=== PATIENT | female | born 1995 | race Caucasian/White ===

== ENCOUNTER 2016-04-04 09:52 | Emergency (ER) | payer MEDICAID ==
[~2016-04-04] VITALS: Wt 114.5 kg
--- NOTE | 2016-04-04 10:42 | RADRPT ---
PROCEDURE: XR Foot. CLINICAL INDICATION: TRAUMA TECHNIQUE: 3 views of the left foot were obtained. COMPARISON: None. FINDINGS: No fracture or dislocation is seen. No foreign body is seen. No marked soft tissue swelling. No s ignificant degenerative change. IMPRESSION: No definite acute fracture or dislocation. RPTAT: HLBE Erin Mahoney Physician Date Time Electronically viewed and signed by Erin Mahoney, Physician on 04/04/2016 10:41 LE/
--- NOTE | 2016-04-04 10:43 | RADRPT ---
PROCEDURE: XR left ankle CLINICAL INDICATION: TRAUMA TECHNIQUE: 3 views of the left ankle were performed. COMPARISON: None. FINDINGS: No definite fracture, dislocation, and/or effusion is seen. The ankle mortise is grossly intact. N o marked soft tissue edema. No definite abnormal calcification. IMPRESSION: No definite acute bony abnormality. RPTAT: HLBE Erin Mahoney Physician Date Time Electronically viewed and signed by Erin Mahoney Physician on 04/04/2016 10:43 LE/
[2016-04-04] MEDS ORDERED: IBUPROFEN 600 MG TAB PO ONE (11:00)
[2016-04-04] MEDS ORDERED: HYDROCODONE/APAP (5/325) TAB PO ONE (11:00)
[2016-04-04] MEDS ORDERED: IBUP-1542 PO (11:02)
--- NOTE | 2016-04-04 11:04 | ERA ---
ER Documentation Chief Complaint Date/Time DATE: 04/04/16 TIME: 11:03 Chief Complaint LEFT ANKLE INJURY HPI This 20-year-old female claims of left ankle pain after twisting it last night. She denies restricted range of motion weakness. She denies fevers or redness or bleeding. ROS All systems reviewed and are negative except as per history of present illness. Medications Home Meds Active Scripts Ibuprofen* (Motrin*) 600 Mg Tab, 600 MG PO Q6, #20 TAB Prov:JOSELYN PEDRO MD 04/04/16 Allergies Allergies: Coded Allergies: Cephalexin (Verified Allergy, Intermediate, throat swollen , Rash itching , 06/26/13) clindamycin (Verified Allergy, Intermediate, Rash Thor[place] swells, 06/26/13) PMhx/Soc History of Surgery: Yes (tonsillectomy, nasal polyps removed) Hx Alcohol Use: No Hx Substance Use: No Hx Tobacco Use: No Physical Exam Vitals Vital Signs Date Time Temp Pulse Resp B/P Pulse Ox O2 Delivery O2 Flow Rate FiO2 04/04/16 09:56 97.2 96 17 160/85 98 Physical Exam Const: [] Alert, [id number] per Head: Atraumatic Eyes: Normal Conjunctiva ENT: Normal External Ears, Nose and Mouth. Neck: Full range of motion..~ No meningismus. Resp: Clear to auscultation bilaterally Cardio: Regular rate and rhythm, no murmurs Abd: Soft, non tender, non distended. Normal bowel sounds Skin: No petechiae or rashes Back: No midline or flank tenderness Ext: No cyanosis, or edema. There is some tenderness in the left lateral ankle joint as well as the fifth metatarsal area. There is some mild swelling and bruising. There is no appreciable tendon or neurologic deficit. There is no warmth or erythema. Neur: Awake and alert Psych: Normal Mood and Affect Results 24 hrs Current Medications Medications (Trade) Dose Ordered Sig/Terrance Route PRN Reason Start Time Stop Time Status Last Admin Dose Admin Ibuprofen (Motrin) 600 mg ONCE ONCE PO 04/04/16 11:00 04/04/16 11:01 DC Acetaminophen/ Hydrocodone Bitart ([place] (5/325)) 1 tab ONCE ONCE PO 04/04/16 11:00 04/04/16 11:00 DC Procedures/MDM X-ray left ankle 3V Interpreted by me: Bones: [No fracture] Joints: No dislocation. Impression-normal left ankle x-ray X-ray left foot 3V Interpreted by me: Bones: [No fracture] Joints: [No dislocation] Foreign body: [None]. Impression-normal left foot x-ray Patient was placed in the left ankle stirrup splint Aircast. Patient was neurovascular intact after splint. Patient is also given crutch training. Patient appears to have a left ankle sprain without signs or symptoms to suggest fracture, dislocation, tendon or neurologic deficit, bacterial infection. She will treated with ibuprofen and instructions for ice and elevation instructions to follow-up with PCP, orthopedist for pain in the next week. She should return sooner for fevers, redness, new or worsening symptoms. Departure Diagnosis: Primary Impression: Ankle sprain Qualified Code: S93.401A - Sprain of right ankle, unspecified ligament, initial encounter Patient Instructions: Treating Ankle Sprains Additional Instructions: X-rays read as normal. See orthopedist or primary doctor for pain next week. Recommend ice and elevation at home. JOESLYN PEDRO MD Apr 04, 2016 11:04
== END 2016-04-04 11:13 | disposition home or self-care (01) ==
LOC: FTE 09:52
DX: S93.402A Sprain of unspecified ligament of left ankle, initial encounter (principal); X50.1XXA Overexertion from prolonged static or awkward postures, initial encounter; Y92.9 Unspecified place or not applicable
CPT/HCPCS: 73610; 73630; Z7610

== ENCOUNTER 2016-09-30 18:25 | Emergency (ER) | payer OTHER ==
[~2016-09-30] VITALS: Ht 157.5 cm; Wt 116.0 kg
[~2016-09-30 18:25] MED LIST: IBUP-1542 PO
[2016-09-30 18:40] VITALS: Ht 157.5 cm; Wt 116.0 kg
[2016-09-30] MEDS ORDERED: ONDANSETRON 4 MG INJ IV STA ×2 (19:02→20:53)
[2016-09-30] MEDS ORDERED: morphine 4 MG/ML VIAL IV STA (19:02)
--- NOTE | 2016-09-30 19:18 | ERD ---
ER Documentation Chief Complaint Date/Time DATE: 09/30/16 TIME: 19:17 Chief Complaint right flank pain x 2 days HPI 21-year-old female otherwise healthy comes in with right lower quadrant abdominal pain that started yesterday after leaving the gym. She states that it was gradual in onset, worsening, and nonradiating. It is associated with tactile fevers she has not had any fevers, chills patient reports nausea and vomiting, however no diarrhea or URI symptoms. ROS All systems reviewed and are negative except as per history of present illness. Medications Home Meds Active Scripts Ondansetron (Ondansetron Odt) 4 Mg Tab.rapdis, 4 MG PO Q6H Y for NAUSEA AND/OR VOMITING, #10 TAB Prov:MILI EDWARDS PA-C 09/30/16 Ibuprofen* (Motrin*) 600 Mg Tab, 600 MG PO Q6, #30 TAB Prov:MILI EDWARDS PA-C 09/30/16 Ibuprofen* (Motrin*) 600 Mg Tab, 600 MG PO Q6, #20 TAB Prov:JOSELYN PEDRO MD 04/04/16 Allergies Allergies: Coded Allergies: cephalexin (Verified Allergy, Intermediate, throat swollen , Rash itching , 09/30/16) clindamycin (Verified Allergy, Intermediate, Rash [place] swells, 09/30/16) PMhx/Soc History of Surgery: Yes (tonsillectomy, nasal polyps removed) Hx Alcohol Use: No Hx Substance Use: No Hx Tobacco Use: Yes Smoking Status: Current some day smoker Physical Exam Vitals Vital Signs Date Time Temp Pulse Resp B/P Pulse Ox O2 Delivery O2 Flow Rate FiO2 09/30/16 18:40 97.3 104 20 162/92 98 Physical Exam Const: Well-developed, well-nourished, in no acute distress. HEENT: Atraumatic. Normal Conjunctiva. Resp: Clear to auscultation bilaterally Cardio: Regular rate and rhythm, no murmurs Abd: Soft, n tender in right lower quadrant, with mild rebound non distended. Normal bowel sounds. No McBurney's point tenderness. No guarding or rigidity. No peritoneal signs. Skin: No petechia or rashes Back: No midline or flank tenderness Ext: No cyanosis, or edema Neur: Awake and alert, appropriate for age Result Diagram: 09/30/16192709/30/161927 Results 24 hrs Laboratory Tests Test 09/30/16 19:22 09/30/16 19:28 Urine Color YELLOW Urine Clarity SLIGHTLY CLOUDY Urine pH 5.0 Urine Specific [place] 1.019 Urine Ketones NEGATIVEmg/dL Urine Nitrite NEGATIVEmg/dL Urine Bilirubin NEGATIVEmg/dL Urine Urobilinogen NEGATIVEmg/dL Urine Leukocyte Esterase NEGATIVELeu/ul Urine Microscopic RBC 1/HPF Urine Microscopic WBC 1/HPF Urine Squamous Epithelial Cells FEW/HPF Urine Hemoglobin NEGATIVEmg/dL Urine Glucose NEGATIVEmg/dL Urine Total Protein NEGATIVEmg/dl White Blood Count 11.610^3/ul Red Blood Count 5.1710^6/ul Hemoglobin 14.1g/dl Hematocrit 42.3% Mean Corpuscular Volume 81.8fl Mean Corpuscular Hemoglobin 27.3pg Mean Corpuscular Hemoglobin Concent 33.3g/dl Red Cell Distribution Width 13.2% Platelet Count 66719^3/UL Mean Platelet Volume 10.0fl Neutrophils % 70.2% Lymphocytes % 24.2% Monocytes % 4.4% Eosinophils % 0.5% Basophils % 0.3% Nucleated Red Blood Cells % 0.0/100WBC Neutrophils # 8.110^3/ul Lymphocytes # 2.810^3/ul Monocytes # 0.510^3/ul Eosinophils # 0.110^3/ul Basophils # 0.010^3/ul Nucleated Red Blood Cells # 0.010^3/ul Sodium Level 140mmol/L Potassium Level 3.9mmol/L Chloride Level 104mmol/L Carbon Dioxide Level 23mmol/L Anion Gap 17 Blood Urea Nitrogen 9mg/dl Creatinine 0.83mg/dl Glucose Level 91mg/dl Calcium Level 9.4mg/dl Total Bilirubin 0.2mg/dl Direct Bilirubin 0.00mg/dl Indirect Bilirubin 0.2mg/dl Aspartate Amino Transf (AST/SGOT) 20IU/L Alanine Aminotransferase (ALT/SGPT) 33IU/L Alkaline Phosphatase 63IU/L Total Protein 7.5g/dl Albumin 4.8g/dl Globulin 2.70g/dl Albumin/Globulin Ratio 1.77 Lipase 39U/L Current Medications Medications (Trade) Dose Ordered Sig/Terrance Route PRN Reason Start Time Stop Time Status Last Admin Dose Admin Morphine Sulfate (morphine) 4 mg ONCE STAT IV 09/30/16 19:02 09/30/16 19:04 DC 09/30/16 19:30 Ondansetron HCl (Zofran Inj) 4 mg ONCE STAT IV 09/30/16 19:02 09/30/16 19:04 DC 09/30/16 19:29 Ketorolac Tromethamine (Toradol) 30 mg ONCE STAT IV 09/30/16 20:42 09/30/16 20:43 DC 09/30/16 20:59 Ondansetron HCl 4 mg 4 mg ONCE STAT IV 09/30/16 20:53 09/30/16 20:55 DC 09/30/16 20:59 Sodium Chloride (NS) 1,000 ml @ 1,000 mls/hr Q1H ONCE IV 09/30/16 21:00 09/30/16 21:59 09/30/16 21:01 Acetaminophen/ Hydrocodone Bitart ([place] (5/325)) 1 tab ONCE ONCE PO 09/30/16 22:00 09/30/16 22:01 09/30/16 21:42 DIAGNOSTIC IMAGING REPORT Patient: SANDRA CHAPIN : 1995 Age: 21 Sex: F MR #: [id number] DOS: 09/30/16 1902 Ordering MD: MILI EDWARDS PA-C Location: [facility] Room/Bed: PROCEDURE: CT scan of the abdomen and pelvis without IV contrast. CLINICAL INDICATION: 21-year-old female with right lower quadrant pain. TECHNIQUE: Thin section axial, coronal and sagittal images were performed through the abdomen and pelvis without contrast. Radiation Dose: CTDI: 23.7 and DLP: 1485 One or more of the following dose reduction techniques were used: - Automated exposure control. - Adjustment of the mA and/or kV according to patient size. Use of iterative reconstruction technique. COMPARISON: CT scan abdomen pelvis 10/09/2013. FINDINGS: Soft tissues: Generous.. Lungs and pleural spaces: Normal. Heart: Normal. No pericardial effusion is identified. The liver, common bile duct and gallbladder: Normal. Gastrointestinal: There is no evidence of a hiatal hernia. The stomach and small bowel loops are normal. There is a tiny midline umbilical hernia. There is fecal material in the ascending colon. The appendix is normal. Pancreas: The pancreas and extrahepatic common bile duct are normal. Kidneys, bladder and adrenal glands : The adrenal glands are normal. The kidneys are unremarkable. There is no evidence of hydronephrosis on today's exam. A phlebolith is noted in the lower left side of the pelvis. There is a small phlebolith slightly right of midline in the lower pelvis. No bladder stone or ureterolith is identified. Spleen: Normal. Lymph nodes: There are multiple small mesenteric nodes measuring under 6 mm in the left upper abdomen. There are small retroperitoneal lymph nodes. No pathologically enlarged lymph node is identified. Reproductive system and pelvis : Normal. The uterus is retroflexed. There is no evidence of an abnormal adnexal mass. Trace free fluid is noted in the pelvis. Bony elements: Normal. Vasculature: Normal. IMPRESSION: 1. No acute intra-abdominal process is identified. 2. Normal vermiform appendix. No evidence of diverticulosis or diverticulitis. 3. Trace fluid in the pelvis. 4. Retroflexed uterus. RPTAT:AAJJ Physician Carmen Date Time Electronically viewed and signed by Quoc Hood Physician on 09/30/2016 20:15 JM/ CC: MILI EDWARDS PA-C DIAGNOSTIC IMAGING REPORT Patient: SANDRA CHAPIN : 1995 Age: 21 Sex: F MR #: [id number] DOS: 09/30/162023 Ordering MD: MILI EDWARDS PA-C Location: [facility] Room/Bed: PROCEDURE: US Pelvis. CLINICAL INDICATION: 21-year-old female with right lower quadrant pain. TECHNIQUE: Multiple sonographic images of the pelvis were obtained utilizing a transabdominal and endovaginal technique. The images were reviewed on a PACS workstation. COMPARISON: None. FINDINGS: The uterus is retroflexed and measures 7.2 cm sagittal by 3.5 cm AP by 5 cm transverse. There is free fluid in the cul-de-sac.. The endometrial echo complex is normal and measures 0.77 cm.. There is no evidence for free fluid. The right ovary has a normal echotexture and measures 4.1 x 3 by 2 cm and contains several follicles. The largest measured 1.6 x 1.1 cm. . The left ovary has a normal echotexture and measures 1.3 by 2.4 by 5 cm. There is normal blood flow to both ovaries on Doppler imaging.. No adnexal masses are noted. IMPRESSION: 1. There is a small amount of free fluid in the cul-de-sac. 2. Normal ovaries with normal blood flow to both ovaries. 3. There are multiple follicles in both ovaries with a right ovarian dominant follicle or cyst measuring up to 1.6 cm. 4. No abnormal adnexal mass is identified. The vermiform appendix is not demonstrated. RPTAT:AAJJ Physician Carmen Date Time Electronically viewed and signed by Quoc Hood Physician on 09/30/2016 21:22 JM/ CC: MILI EDWARDS PA-C Procedures/MDM ED course: Patient an IV line established, patient was given morphine 4 mg, Zofran 4 mg IV , labs and urine were obtained. She states that she was still nauseous after receiving this previous Zofran, and the risk for was given additional pain medication including Toradol 30 mg IV with Zofran 4 mg IV and a fluid bolus of normal saline 1 L. She was given [place] 5/325 mg for pain as well. Medical decision making: This is a 21-year-old female comes emergency room right lower quadrant pain that started yesterday, differentials include acute appendicitis, diverticulitis, bowel obstruction, tubo-ovarian abscess, ovarian cyst, UTI, pyelonephritis, kidney stones, and among others. Pain may be due to viral process, she has associated nausea and vomiting, that cannot be seen on CT today. She had follicular cyst seen on the right side, without evidence of any acute or surgical abdominal process. She was resting comfortably after she was medicated emergency department in stable for discharge. Departure Diagnosis: Primary Impression: Abdominal pain Condition: MILI Luke PA-C Sep 30, 2016 19:18
[2016-09-30 19:42] LABS: ADD SCAN DIFF NO
[2016-09-30 19:43] LABS: BASOPHILS % 0.3 % (0.0-2.0); EOSINOPHILS # 0.1 10^3/ul (0.0-0.5); EOSINOPHILS % 0.5 % (0.0-7.0); HEMATOCRIT 42.3 % (37.0-47.0); HEMOGLOBIN 14.1 g/dl (12.0-16.0); LYMPHOCYTES # 2.8 10^3/ul (0.8-2.9); LYMPHOCYTES % 24.2 % (18.0-55.0); MEAN CORPUSCULAR HEMOGLOBIN 27.3 pg (29.0-33.0); MEAN CORPUSCULAR HGB CONC 33.3 g/dl (32.0-37.0); MEAN CORPUSCULAR VOLUME 81.8 fl (72.0-104.0); MONOCYTE # 0.5 10^3/ul (0.3-0.9); MONOCYTES % 4.4 % (0.0-13.0); NEUTROPHIL # 8.1 10^3/ul (1.6-7.5); NEUTROPHILS % 70.2 % (30.0-74.0); PLATELET COUNT 299 10^3/UL (140-415); RED BLOOD COUNT 5.17 10^6/ul (4.20-5.40); RED CELL DISTRIBUTION WIDTH 13.2 % (11.5-14.5); WHITE BLOOD COUNT 11.6 10^3/ul (4.8-10.8)
[2016-09-30 19:50] LABS: ADD UMIC NO; UR ASCORBIC ACID NEGATIVE (NEGATIVE); UR BILIRUBIN (Dip) NEGATIVE (NEGATIVE); UR BLOOD (Dip) NEGATIVE (NEGATIVE); UR CLARITY SLIGHTLY CLOUDY (CLEAR); UR COLOR YELLOW (YELLOW); UR GLUCOSE (Dip) NEGATIVE (NEGATIVE); UR KETONES (Dip) NEGATIVE (NEGATIVE); UR LEUKOCYTE ESTERASE (Dip) NEGATIVE Leu/ul (NEGATIVE); UR NITRITE (Dip) NEGATIVE (NEGATIVE); UR RBC 1 /HPF (0-5); UR SPECIFIC GRAVITY (Dip) 1.019 (1.003-1.030); UR SQUAMOUS EPITHELIAL CELL FEW /HPF (FEW); UR TOTAL PROTEIN (Dip) NEGATIVE (NEGATIVE); UR UROBILINOGEN (Dip) NEGATIVE (NEGATIVE)
[2016-09-30 20:06] LABS: ALBUMIN 4.8 g/dl (3.3-4.9); ALBUMIN/GLOBULIN RATIO 1.77; BILIRUBIN,INDIRECT 0.2 mg/dl (0-1.1); BILIRUBIN,TOTAL 0.2 mg/dl (0.2-1.3); CALCIUM 9.4 mg/dl (8.4-10.2); CREATININE 0.83 mg/dl (0.44-1.00); POTASSIUM 3.9 mmol/L (3.5-5.1); TOTAL PROTEIN 7.5 g/dl (6.1-8.1)
--- NOTE | 2016-09-30 20:16 | RADRPT ---
PROCEDURE: CT scan of the abdomen and pelvis without IV contrast. CLINICAL INDICATION: 21-year-old female with right lower quadrant pain. TECHNIQUE: Thin section axial, coronal and sagittal images were performed through the abdomen and pelvis without contrast. Radiation Dose: CTDI: 23.7 and DLP: 1485 One or more of the following dose reduction techniques were used: - Automated exposure control. - Adjustment of the mA and/or kV according to patient size. Use of iterative reconstruction technique. COMPARISON: CT scan abdomen pelvis 10/09/2013. FINDINGS: Soft tissues: Generous.. Lungs and pleural spaces: Normal. Heart: Normal. No pericardial effusion is identified. The liver, common bile duct and gallbladder: Normal. Gastrointestinal: There is no evidence of a hiatal hernia. The stomach and small bowel loops are no rmal. There is a tiny midline umbilical hernia. There is fecal material in the ascending colon. T he appendix is normal. Pancreas: The pancreas and extrahepatic common bile duct are normal. Kidneys, bladder and adrenal glands : The adrenal glands are normal. The kidneys are unremarkable. There is no evidence of hydronephrosis on today's exam. A phlebolith is noted in the lower left si de of the pelvis. There is a small phlebolith slightly right of midline in the lower pelvis. No bl adder stone or ureterolith is identified. Spleen: Normal. Lymph nodes: There are multiple small mesenteric nodes measuring under 6 mm in the left upper abdome n. There are small retroperitoneal lymph nodes. No pathologically enlarged lymph node is identifie d. Reproductive system and pelvis : Normal. The uterus is retroflexed. There is no evidence of an abn ormal adnexal mass. Trace free fluid is noted in the pelvis. Bony elements: Normal. Vasculature: Normal. IMPRESSION: 1. No acute intra-abdominal process is identified. 2. Normal vermiform appendix. No evidence of diverticulosis or diverticulitis. 3. Trace fluid in the pelvis. 4. Retroflexed uterus. RPTAT:AAJJ Physician Carmen Date Time Electronically viewed and signed by Physician Carmen on 09/30/2016 20:15 JM/
[2016-09-30] MEDS ORDERED: KETOROLAC 30 MG INJ IV STA (20:42)
[2016-09-30] MEDS ORDERED: SOD CHLORIDE 0.9% 1,000 ML IV ONE (21:00)
--- NOTE | 2016-09-30 21:22 | RADRPT ---
PROCEDURE: US Pelvis. CLINICAL INDICATION: 21-year-old female with right lower quadrant pain. TECHNIQUE: Multiple sonographic images of the pelvis were obtained utilizing a transabdominal and endovaginal technique. The images were reviewed on a PACS workstation. COMPARISON: None. FINDINGS: The uterus is retroflexed and measures 7.2 cm sagittal by 3.5 cm AP by 5 cm transverse. There is fr ee fluid in the cul-de-sac.. The endometrial echo complex is normal and measures 0.77 cm.. There is no evidence for free fluid. The right ovary has a normal echotexture and measures 4.1 x 3 by 2 cm an d contains several follicles. The largest measured 1.6 x 1.1 cm. . The left ovary has a normal ech otexture and measures 1.3 by 2.4 by 5 cm. There is normal blood flow to both ovaries on Doppler werner ging.. No adnexal masses are noted. IMPRESSION: 1. There is a small amount of free fluid in the cul-de-sac. 2. Normal ovaries with normal blood flow to both ovaries. 3. There are multiple follicles in both ovaries with a right ovarian dominant follicle or cyst kit uring up to 1.6 cm. 4. No abnormal adnexal mass is identified. The vermiform appendix is not demonstrated. RPTAT:AAJJ Physician Carmen Date Time Electronically viewed and signed by Physician Carmen on 09/30/2016 21:22 ILSA/
[2016-09-30] MEDS ORDERED: ONDA4TAB14 PO (21:31)
[2016-09-30] MEDS ORDERED: IBUP-1542 PO (21:31)
[2016-09-30] MEDS ORDERED: HYDROCODONE/APAP (5/325) TAB PO ONE (22:00)
[2016-09-30 22:06] VITALS: BP 126/60; PULSE 74; RESP 20
== END 2016-09-30 22:06 | disposition home or self-care (01) ==
LOC: FTE 18:25
DX: R10.31 Right lower quadrant pain (principal); F17.210 Nicotine dependence, cigarettes, uncomplicated
CPT/HCPCS: 36415; 74176; 76830; 76856; 80053; 81001; 81003; 83690; 85025; 96374; 96375; 96376; J1885; J2270; J2405; J7030; Z7502; Z7610